=== PATIENT | female | born 1955 | race Caucasian/White ===

== ENCOUNTER 2019-10-31 07:40 | Day surgery (SDC) | payer OTHER ==
[~2019-10-31] VITALS: Ht 162.6 cm; Wt 117.9 kg
[~2019-10-31 07:40] MED LIST: LEVOTHYROXINE125 MCG PO; METFORMIN HCL500 M1 PO
--- NOTE | 2019-10-31 08:58 | NUR ---
10/31/19 0858 Joselin Malone 0847 PATIENT ARRIVES TO PACU AWAKE BUT VERY DROWSY, FALLS ASLEEP WHEN NOT STIMULATED. ANSWERS QUESTIONS APPROPRIATELY. RESP EVEN AND UNLABORED, NC OFF, ROOM AIR SATS >90%. DENIES PAIN OR NAUSEA. 0855 PATIENT AWAKE OFF/ON, BUT STILL VERY DROWSY. CONTINUES TO DENY PAIN OR NAUSEA. TAKING SIPS OF JUICE.
--- NOTE | 2019-10-31 09:53 | OR ---
[facility] [address] [place], [place] [address] Signed DATE OF OPERATION: 10/31/2019 SURGEON: Keyanna Tenorio MD PREOPERATIVE DIAGNOSES: 1. Hyperplastic polyps at 20 cm in 2007. 2. Diverticulosis. POSTOPERATIVE DIAGNOSES: 1. 3 mm polyp in proximal right colon. 2. 4 mm polypoid lesion at 65 cm. 3. Zktdqyx-up-muuepdgz sigmoid diverticulosis. PROCEDURE: Colonoscopy with hot biopsy. ESTIMATED BLOOD LOSS: None. INDICATIONS: Deedee is a 64-year-old female who came in 2007 at the age of 52. We found just a single hyperplastic polyp up at 20 cm. She also has diverticulosis. She returns now for followup colonoscopy. She gives no family history of colon cancer or polyps. She has no lower GI complaints. In the office, I gave her a pamphlet on colonoscopy. We looked at that together along with the risks including, but not limited to gas bloating, crampy abdominal pain, bleeding, perforation requiring surgery, and missed diagnosis. We also discussed the need for IV conscious sedation. She had expressed understanding and wished to proceed. PROCEDURE NOTE: Deedee was taken into our endoscopy suite and placed in the left lateral decubitus position. She was given a total of 8 mg of Versed and 150 mcg of fentanyl to cover the case. A digital rectal exam was performed and this was unremarkable. The adult colonoscope was introduced and advanced all around into the cecum under direct visualization of camera without difficulty. Her prep was good. The scope was slowly withdrawn. We could easily see the appendiceal orifice and the ileocecal valve. Her prep was good. The above-mentioned polyps were easily removed with the help of hot biopsy forceps. She does have mepxxvk-fv-abhmdoqw sigmoid diverticulosis. They were moderate in size, aaqyybq-qj-nozoxbdt in number, and scattered about. The rectum itself was unremarkable. Upon retroflexion of the scope, there was no additional pathology Electronically Signed By: KEYANNA TENORIO MD 10/31/19 0953 PATIENT NAME: DEEDEE AVELAR OPERATIVE REPORT DATE OF : 57 REPORT #: [id number] PHYSICIAN: KEYANNA TENORIO MD PCP: LILLI RED PA-C REPORT IS CONFIDENTIAL AND NOT TO BE RELEASED WITHOUT AUTHORIZATION [address] [address] Signed noted above the anal canal. After this, the gas was suctioned out. The colonoscope removed. Deedee tolerated the procedure quite well. RECOMMENDATIONS: Deedee will follow up in my office in 7 to 14 days to review her results. Keyanna Tenorio MD ALB/MODL /[id number] cc: LAUREN Barfield MD Copies: KEYANNA TENORIO MD ~ Electronically Signed By: KEYANNA TENORIO MD 10/31/19 0953 PATIENT NAME: DEEDEE AVELAR OPERATIVE REPORT DATE OF : 57 REPORT #: [id number] PHYSICIAN: KEYANNA TENORIO MD PCP: LILLI RED PA-C REPORT IS CONFIDENTIAL AND NOT TO BE RELEASED WITHOUT AUTHORIZATION
--- NOTE | 2019-11-05 13:18 | PATH ---
[facility] [address] [place], [place] [address] Signed SPECIMEN(S): A PROXIMAL ASCENDING COLON POLYP SPECIMEN(S): B COLON POLYP AT 65 CM SPECIMEN SOURCE: A. PROXIMAL ASCENDING COLON POLYP B. COLON POLYP AT 65 CM CLINICAL HISTORY: Screening, history of hyperplastic polyp. Colon polyps x2, diverticulosis. MICROSCOPIC DESCRIPTION: Histologic sections of all submitted blocks are examined by light microscopy. These findings, together with the gross examination, support the pathologic diagnosis. FINAL PATHOLOGIC DIAGNOSIS: A. Colon, proximal ascending, polyp, polypectomy: - Tubular adenoma. - Negative for high-grade dysplasia or malignancy. B. Colon, polyp at 65 cm, polypectomy: - Sessile serrated adenoma/polyp. - Negative for dysplasia or malignancy. NAL:cml:C2NR GROSS DESCRIPTION: Two specimens are received in two containers, labeled "SM." A. The specimen, labeled "SM, proximal ascending colon polyp," is received in formalin and consists of a single 0.2 cm licona tissue fragment. Specimen is entirely submitted in cassette (A1). B. The specimen, labeled "SM, colon polyp at 65 cm," is received in formalin and consists of four, 0.1-0.2 cm licona-brown tissue fragments. Specimen is entirely submitted in cassette (B1). AM (under the direct supervision of a pathologist) The Gross Description was prepared using a voice recognition system. The report was reviewed for accuracy; however, sound-alike word errors, addition and/or deletions may occur. If there is any question about this report, please contact Client Services. PERFORMING LABORATORY: The technical component was performed by [facility], [address] [place] [id number] (Automatic Buffer: Luann Herring MD; CLIA# [id number]). Professional interpretation was performed by PATIENT NAME: ELIGIO AVELAR PATHOLOGY DATE OF : 57 REPORT #: [id number] PHYSICIAN: [facility] PCP: LILLI RED PA-C REPORT IS CONFIDENTIAL AND NOT TO BE RELEASED WITHOUT AUTHORIZATION [facility] [address] [place], [place] [address] Signed [facility], [facility], [address] [facility] [address], [place] [address] (Automatic Buffer: Yosef Dye MD; CLIA# [id number]). Diagnostician: Bridget Osullivan MD Pathologist Electronically Signed 11/05/2019 Copies: ~ PATIENT NAME: ELIGIO AVELAR PATHOLOGY DATE OF : 57 REPORT #: [id number] PHYSICIAN: [facility] PCP: LILLI RED PA-C REPORT IS CONFIDENTIAL AND NOT TO BE RELEASED WITHOUT AUTHORIZATION
== END 2019-10-31 09:20 | disposition home or self-care (01) ==
LOC: OPS 07:40 → DS 07:47 → OPS 08:15 → DS 09:15 → OPS 09:15
PROVIDERS: Colon & Rectal Surgery
PROC: 0DBE8ZZ Excision of Large Intestine, Via Natural or Artificial Opening Endoscopic (ICD-10-PCS; 2019-10-31)
PROC: 0DBK8ZZ Excision of Ascending Colon, Via Natural or Artificial Opening Endoscopic (ICD-10-PCS; principal; 2019-10-31 08:15)
DX: Z12.11 Encounter for screening for malignant neoplasm of colon (principal); D12.2 Benign neoplasm of ascending colon; D12.6 Benign neoplasm of colon, unspecified; K57.30 Diverticulosis of large intestine without perforation or abscess without bleeding; E78.5 Hyperlipidemia, unspecified; E66.01 Morbid (severe) obesity due to excess calories; E11.9 Type 2 diabetes mellitus without complications; E03.9 Hypothyroidism, unspecified; Z86.010 Personal history of colon polyps; Z79.899 Other long term (current) drug therapy; Z98.890 Other specified postprocedural states; Z68.42 Body mass index [BMI] 45.0-49.9, adult; Z79.84 Long term (current) use of oral hypoglycemic drugs
CPT/HCPCS: 99153; G0500; J2250; J3010; J7121

== ENCOUNTER 2023-11-20 23:07 | Emergency (ER) | payer MEDICARE, OTHER ==
[~2023-11-20] VITALS: Ht 162.6 cm; Wt 118.0 kg
[2023-11-20 23:36] VITALS: BP 135/63
== END 2023-11-20 23:33 | disposition home or self-care (01) ==
LOC: ED 23:07
DX: L03.114 Cellulitis of left upper limb (principal); E11.9 Type 2 diabetes mellitus without complications; E03.9 Hypothyroidism, unspecified; Z87.891 Personal history of nicotine dependence; Z79.899 Other long term (current) drug therapy; Z79.890 Hormone replacement therapy
CPT/HCPCS: 99282; A9270

== ENCOUNTER 2024-12-17 03:53 | Emergency (ER) | payer MEDICARE, OTHER ==
[~2024-12-17] VITALS: Ht 162.6 cm; Wt 111.1 kg
[2024-12-17] MEDS ORDERED: KETOROLAC TROMETHAMINE 30 MG/ML VIAL IV ONE (04:15)
[2024-12-17] MEDS ORDERED: ondansetron HCL 4 MG/2 ML VIAL IV ONE (04:15)
[2024-12-17] MEDS ORDERED: SODIUM CHLORIDE 0.9% 500 ML IV ONE (04:15)
[2024-12-17 04:27] LABS: BASOPHILS 0.5 % (0-2); EOSINOPHILS 0.7 % (0-6); HEMATOCRIT 41.6 % (35.0-50.0); HEMOGLOBIN 14.1 g/dL (12.0-18.0); LYMPHOCYTES 14.5 % (24-44); MCH 28.6 (27-36); MCHC 33.9 g/dl (30-36); MCV 84.4 fl (81-99); MONOCYTES 4.3 % (0-12); PLATELET COUNT 285 K/uL (140-440); RBC 4.93 M/ul (4.3-5.7); RDW 13.3 (10.5-15.0)
[2024-12-17 04:47] LABS: ALBUMIN 3.5 g/dL (3.4-5.0); ALBUMIN/GLOBULIN RATIO 1.09 (1.1-2.4); ANION GAP 13.3 (7-21); BILIRUBIN, TOTAL 0.4 mg/dL (0.2-1.0); BUN/CREATININE RATIO 20.21 (6.0-28.6); CALCIUM 9.2 mg/dL (8.5-10.1); CREATININE, SERUM 0.94 mg/dL (0.55-1.02); POTASSIUM 4.3 mmol/L (3.5-5.1); PROTEIN, TOTAL 6.7 g/dL (6.4-8.2)
[2024-12-17 05:19] LABS: BILIRUBIN, URINE NEGATIVE (negative); BLOOD/HGB, URINE NEGATIVE (Negative); KETONE, URINE TRACE (Negative); LEUK ESTERASE, URINE TRACE (negative); NITRITE, URINE NEGATIVE (negative); PH, URINE 5.5 (5-7)
[2024-12-17 05:27] LABS: BACTERIA, URINE 1+ /hpf (negative); CASTS, URINE NONE SEEN \\lpf; CRYSTALS, URINE NONE SEEN (0-1+); EPITHELIAL CELLS, URINE SQUAMOUS 3+ /lpf (0-1+); RED BLOOD CELLS, URINE 0-1 /hpf (0-5)
[2024-12-17 05:28] LABS: COLLECTION TYPE, URINE CLEAN CATCH; REFLEX CULTURE, URINE No (No)
[2024-12-17] MEDS ORDERED: NITROFURANTOIN MONOHYD MACROCR 100 MG HOME.PACK PO ONE (06:15)
[2024-12-17] MEDS ORDERED: MACROBID 100 M100 MG PO (06:15)
[2024-12-17] MEDS ORDERED: ONDANSETRON ODT8 MG PO (06:17)
[2024-12-17 06:28] VITALS: BP 134/72
== END 2024-12-17 06:30 | disposition home or self-care (01) ==
LOC: ED 03:53
PROVIDERS: Family Medicine
DX: N39.0 Urinary tract infection, site not specified (principal); E11.9 Type 2 diabetes mellitus without complications; E03.9 Hypothyroidism, unspecified; Z87.891 Personal history of nicotine dependence; Z79.890 Hormone replacement therapy; Z79.84 Long term (current) use of oral hypoglycemic drugs
CPT/HCPCS: 36415; 80053; 81001; 83690; 85025; 96361; 96374; 96375; 99284-25; J1885; J2405; J7040